=== PATIENT | female | born 1970 | race Caucasian/White ===

== ENCOUNTER 2020-12-22 12:40 | Inpatient (IN) ==
[2020-12-22] MEDS ORDERED: HYDROmorphone 2 MG/1 ML VIAL IV STA ×2 (13:11→16:15)
[2020-12-22] MEDS ORDERED: ONDANSETRON 4 MG/2 ML VIAL IV ONE (13:12)
[2020-12-22] MEDS ORDERED: ONDANSETRON 4 MG/2 ML VIAL IV STA (16:15)
[2020-12-22] MEDS ORDERED: PROMETHAZINE 25 MG/1 ML VIAL IM PRN (17:59)
[2020-12-22] MEDS: MORPHINE 10 MG/1 ML VIAL IV PRN ×2 (18:24→22:08)
[2020-12-22] MEDS ORDERED: ONDANSETRON 4 MG/2 ML VIAL IV PRN (19:00)
[2020-12-22 21:51] LABS: Amorphous Crystals,Urine Occasional /HPF (Few); Bacteria,Urine Few /HPF (Few); Bilirubin,Urine Negative (Negative); Blood, Urine Negative (Negative); Glucose,Urine (UA) Negative (Negative); Ketones,Urine 5 mg/dL (Negative); Mucus,Urine Few /LPF (Occasional); Nitrite,Urine Positive (Negative); Protein,Urine Negative; Squamous Epithelial Cell,Urine Occasional /HPF (0-10); Urine Appearance CLOUDY (Clear); Urine Color Amber (Yellow); Urine Specific Gravity 1.025 (1.001-1.035); Urine Urobilinogen < 2.0 EU/DL (0.2-1.0)
[2020-12-23] MEDS: MORPHINE 10 MG/1 ML VIAL IV PRN ×5 (02:17→20:54)
[2020-12-23] MEDS ORDERED: fentaNYL 100 MCG/2 ML VIAL ONE ×2 (07:04→08:22)
[2020-12-23] MEDS ORDERED: SCOPOLAMINE 1.5 MG PATCH TRANSDERM ONE (07:18)
[2020-12-23] MEDS ORDERED: DEXAMETHASONE 4 MG/1 ML VIAL ONE ×2 (08:13)
[2020-12-23] MEDS ORDERED: ceFAZolin 1,000 MG VIAL ONE ×2 (08:14)
[2020-12-23] MEDS ORDERED: ROCURONIUM 50 MG/5 ML VIAL IV ONE ×2 (08:14→08:25)
[2020-12-23] MEDS ORDERED: LIDOCAINE 2% 5 ML VIAL ONE (08:14)
[2020-12-23] MEDS ORDERED: ONDANSETRON 4 MG/2 ML VIAL ONE (08:14)
[2020-12-23] MEDS ORDERED: propofoL 200 MG/20 ML VIAL IV ONE (08:14)
[2020-12-23] MEDS ORDERED: HYDROmorphone 2 MG/1 ML VIAL IV PRN (10:12)
[2020-12-23] MEDS ORDERED: ONDANSETRON 4 MG/2 ML VIAL IV PRN (10:12)
[2020-12-23] MEDS ORDERED: LACTATED RINGERS 1,000 ML IV ONE ×2 (10:45→11:13)
[2020-12-23] MEDS ORDERED: DEXMEDETOMIDINE 200 MCG/2 ML VIAL ONE (11:10)
[2020-12-23] MEDS ORDERED: NEOSTIGMINE 10 MG/10 ML VIAL ONE (11:24)
[2020-12-23] MEDS ORDERED: GLYCOPYRROLATE 0.4 MG/2 ML VIAL ONE (11:24)
[2020-12-23] MEDS ORDERED: KETOROLAC 30 MG/1 ML VIAL ONE (11:25)
[2020-12-23] MEDS ORDERED: SEVOFLURANE 1 UNIT/15 MINUTE INH ONE (11:57)
[2020-12-23] MEDS: CETIRIZINE 10 MG TABLET PO SCH (12:37)
[2020-12-23] MEDS: TOPIRAMATE 200 MG TABLET PO SCH (20:55)
[2020-12-23] MEDS: ATORVASTATIN 10 MG TABLET PO SCH (20:55)
[2020-12-24 06:19] LABS: Hematocrit 30.7 VOL% (35.7-47.0); Hemoglobin 10.2 GM/DL (12.0-16.0)
[2020-12-24] MEDS: CETIRIZINE 10 MG TABLET PO SCH (08:37)
[2020-12-24] MEDS: MORPHINE 10 MG/1 ML VIAL IV PRN (08:42)
[2020-12-24] MEDS: TOPIRAMATE 200 MG TABLET PO SCH (20:37)
[2020-12-24] MEDS: ATORVASTATIN 10 MG TABLET PO SCH (20:39)
[2020-12-25] MEDS: CETIRIZINE 10 MG TABLET PO SCH (09:33)
[2020-12-25] MEDS: MORPHINE 10 MG/1 ML VIAL IV PRN (13:25)
[2020-12-25] MEDS: ATORVASTATIN 10 MG TABLET PO SCH (20:38)
[2020-12-25] MEDS: TOPIRAMATE 200 MG TABLET PO SCH (20:39)
[2020-12-26] MEDS: CETIRIZINE 10 MG TABLET PO SCH (09:01)
[2020-12-26] MEDS: MORPHINE 10 MG/1 ML VIAL IV PRN (12:36)
[2020-12-26] MEDS: TOPIRAMATE 200 MG TABLET PO SCH (20:18)
[2020-12-26] MEDS: ATORVASTATIN 10 MG TABLET PO SCH (20:18)
[2020-12-27] MEDS: MORPHINE 10 MG/1 ML VIAL IV PRN ×2 (01:40→09:04)
[2020-12-27] MEDS: CETIRIZINE 10 MG TABLET PO SCH (09:04)
[2020-12-27 16:05] VITALS: BP 133/73
== END 2020-12-27 18:37 | disposition home health service (06) | DRG 493 ==
LOC: EDUNIT# → EDBD → N.ED 12:40 → N.EDINP 16:27 → N.3E 18:01
PROVIDERS: ADMIT Orthopaedic Surgery; ATTEND Orthopaedic Surgery